=== PATIENT | male | born 1960 | race Caucasian/White ===

== ENCOUNTER 2019-06-28 09:36 | Emergency (ER) | payer OTHER ==
--- NOTE | 2019-06-28 10:12 | ED Physician Chart ---
ED Chief Complaint/HPI - Patient Information Date Seen:: 06/28/19 Time Seen:: 10:05 Chief Complaint:: abdominal pain History of Present Illness:: this is a 59 yr old lauren who is concerned about constipation, abdominal discomfort with episodes of dizziness. he denies hypertension, diabetes and heart disease. he denies nausea, vomiting and diarrhea. Allergies:: Allergies Allergy/AdvReac Type Severity Reaction Status Date / Time No Known Allergies Allergy Verified 06/28/19 09:46 Vitals:: Vital Signs - 8 hr 06/28/19 09:47 Temp 98.6 F HR 89 RR 16 BP 103/64 O2 Sat % 95 Historian:: Patient Review:: Nurse's Note Reviewed ED Review of Systems - Review of Systems General/Constitutional: No fever, No chills, No weight loss, No weakness, No diaphoresis, No edema, No loss of appetite Skin: No skin lesions, No rash, No bruising Head: No headache, Light headed Eyes: No loss of vision, No pain, No diplopia ENT: No earache, No nasal drainage, No sore throat, No tinnitus Neck: No neck pain, No swelling, No thyromegaly, No stiffness, No mass noted Cardio Vascular: No chest pain, No palpitations, No PND, No orthopnea, No edema Pulmonary: No SOB, No cough, No sputum, No wheezing GI: No nausea, No vomiting, No diarrhea, Pain, No melena, No hematochezia, Constipation, No hematemesis G/U: No dysuria, No frequency, No hematuria Musculoskeletal: No bone or joint pain, No back pain, No muscle pain Endocrine: No polyuria, No polydipsia Psychiatric: No prior psych history, No depression, No anxiety, No suicidal ideation Hematopoietic: No bruising, No lymphadenopathy Allergic/Immuno: No urticaria, No angioedema Neurological: No syncope, No focal symptoms, No weakness, No paresthesia, No headache, No seizure, No dizziness, No confusion, No vertigo ED Past Medical History - Past Medical History Obtainable: Yes Past Medical History: No significant medical hx Family History: None Social History: Non Smoker, No Alcohol, No Drug Use, Employed Surgical History: None Psychiatricy History: None Medication: Reviewed Family Medical History - Family Member Mother History Unknown: Yes ED Physical Exam - Physical Examination General/Constitutional: Awake, Well-developed, well-nourished, Alert, No distress, GCS 15, Non-toxic appearing, Ambulatory Head: Atraumatic Eyes: Lids, conjuctiva normal, PERRL, EOMI Skin: Nl inspection, No rash, No skin lesions, No ecchymosis, Well hydrated, No lymphadenopathy ENMT: External ears, nose nl, Nasal exam nl, Lips, teeth, gums nl Neck: Nontender, Full ROM w/o pain, No JVD, No nuchal rigidity, No bruit, No mass, No stridor Respiratory: Nl effort/Exclusion, Clear to Auscultation, No Wheeze/Rhonchi/Rales Cardio Vascular: RRR, No murmur, gallop, rubs, NL S1 S2 GI: No tenderness/rebounding/guarding (mild generalize tenderness), No organomegaly, No hernia, Normal BS's, Nondistended, No mass/bruits, No McBurney tenderness : No CVA tenderness Extremities: No tenderness or effusion, Full ROM, normal strength in all extremities, No edema, Normal digits & nails Neuro/Psych: Alert/oriented, DTR's symmetric, Normal sensory exam, Normal motor strength, Judgement/insight normal, Mood normal, Normal gait, No focal deficits Misc: Normal back, No paraspinal tenderness ED Labs/Radiology/EKG Results - Lab Results Results: Abnormal Lab Results 06/28/19 06/28/19 06/28/19 10:10 10:10 10:10 WBC 7.1 RBC 4.87 Hgb 15.0 Hct 43.3 MCV 88.9 MCH 30.7 H MCHC Differential 34.5 RDW 13.0 Plt Count 278 MPV 7.3 Neutrophils % 63.0 Lymphocytes % 26.5 Monocytes % 8.4 Eosinophils % 1.1 Basophils % 1.0 PT 9.6 INR 0.92 PTT (Actin FS) 25.2 L Sodium Potassium Chloride Carbon Dioxide Anion Gap BUN Creatinine Est GFR ( Amer) Est GFR (Non-Af Amer) BUN/Creatinine Ratio Glucose Calcium Total Bilirubin AST ALT Alkaline Phosphatase Troponin I Total Protein Albumin Globulin Albumin/Globulin Ratio Triglycerides 301 H Cholesterol 197 LDL Cholesterol Direct 124 HDL Cholesterol 29 TSH Urine Source Urine Color Urine Clarity Urine pH Ur Specific [place] Urine Protein Urine Glucose (UA) Urine Ketones Urine Blood Urine Nitrate Urine Bilirubin Urine Urobilinogen Ur Leukocyte Esterase Urine RBC Urine WBC Ur Epithelial Cells Urine Bacteria Urine Mucus 06/28/19 06/28/19 06/28/19 10:10 10:10 10:10 WBC RBC Hgb Hct MCV MCH MCHC Differential RDW Plt Count MPV Neutrophils % Lymphocytes % Monocytes % Eosinophils % Basophils % PT INR PTT (Actin FS) Sodium 135 L Potassium 3.9 Chloride 104 Carbon Dioxide 24.6 Anion Gap 10.3 BUN 19 Creatinine 0.8 Est GFR ( Amer) > 60.0 Est GFR (Non-Af Amer) > 60.0 BUN/Creatinine Ratio 23.8 Glucose 96 Calcium 8.6 Total Bilirubin 0.6 AST 16 ALT 18 Alkaline Phosphatase 75 Troponin I < 0.01 L Total Protein 7.3 Albumin 4.0 L Globulin 3.3 Albumin/Globulin Ratio 1.2 Triglycerides Cholesterol LDL Cholesterol Direct HDL Cholesterol TSH 0.98 Urine Source Urine Color Urine Clarity Urine pH Ur Specific [place] Urine Protein Urine Glucose (UA) Urine Ketones Urine Blood Urine Nitrate Urine Bilirubin Urine Urobilinogen Ur Leukocyte Esterase Urine RBC Urine WBC Ur Epithelial Cells Urine Bacteria Urine Mucus 06/28/19 10:21 WBC RBC Hgb Hct MCV MCH MCHC Differential RDW Plt Count MPV Neutrophils % Lymphocytes % Monocytes % Eosinophils % Basophils % PT INR PTT (Actin FS) Sodium Potassium Chloride Carbon Dioxide Anion Gap BUN Creatinine Est GFR ( Amer) Est GFR (Non-Af Amer) BUN/Creatinine Ratio Glucose Calcium Total Bilirubin AST ALT Alkaline Phosphatase Troponin I Total Protein Albumin Globulin Albumin/Globulin Ratio Triglycerides Cholesterol LDL Cholesterol Direct HDL Cholesterol TSH Urine Source CLEAN C Urine Color YELLOW Urine Clarity HAZY Urine pH 6.5 Ur Specific [place] 1.020 Urine Protein NEGATIVE Urine Glucose (UA) NEGATIVE Urine Ketones NEGATIVE Urine Blood MODERATE H Urine Nitrate NEGATIVE Urine Bilirubin NEGATIVE Urine Urobilinogen 0.2 Ur Leukocyte Esterase NEGATIVE Urine RBC 2-5 H Urine WBC 2-5 Ur Epithelial Cells OCCASIONAL Urine Bacteria FEW Urine Mucus FEW - Radiology Results Results: ct scan of the abdomen = enlarged prostate and diverticulosis coronary atheroscllerosis, small umbilical hernia ct scan of the head = nad chest x-ray = nad - EKG Interpretations EKG Time:: 10:50 Rate & Rhythm: rate =61, sinus Dayhoit: right axis ED Assessment - Assessment General Assessment: gastroenteritis ED Septic Shock - . Is Septic Shock (SBP<90, OR Lactate>4 mmol\L) present?: No - <6hrs of presentation: Vital Signs: Vital Signs - 8 hr 06/28/19 09:47 Temp 98.6 F HR 89 RR 16 BP 103/64 O2 Sat % 95 ED Reassessment (Disposition) - Reassessment Reassessment Condition:: Improved - Diagnosis Diagnosis:: prostate enlargement hematuria umbilical hernia diverticulosis coronary disease - Aftercare/Follow up Instructions Aftercare/Follow-Up Instructions:: Counseled pt regarding lab results/diagnosis & need follow up, Refer to Discharge Instructions, Counseled pt & family regarding lab results/diagnosis & need follow up - Patient Disposition Discharge/Transfer:: Home Condition at Disposition:: Improved
[2019-06-28 10:22] LABS: URINE SOURCE CLEAN C
[2019-06-28 10:28] LABS: % EOSINOPHILS 1.1 % (0.0-5.0); % LYMPHOCYTES 26.5 % (20.0-50.0); % MONOCYTES 8.4 % (2.0-10.0); BASOPHILE ABSOLUTE 0.1 Th/cumm (0-0.2); EOSINOPHILE ABSOLUTE 0.1 Th/cmm (0.1-0.4); HEMATOCRIT 43.3 % (41.0-60); LYMPHOCYTE ABSOLUTE 1.9 Th/cmm (1.5-3.0); MEAN CELL VOLUME 88.9 fl (80-99); MEAN CORPUSCULAR HEMOGLOBIN 30.7 pg (26.0-30.0); MEAN CORPUSCULAR HGB CONC 34.5 pg (28.0-36.0); MONOCYTE ABSOLUTE 0.6 Th/cmm (0.3-1.0); NEUTROPHILE ABSOLUTE 4.4 Th/cmm (1.8-8.0); PLATELET COUNT 278 Th/cmm (150-400); RED BLOOD COUNT 4.87 Mil/cmm (4.30-5.70); WHITE BLOOD COUNT 7.1 Th/cmm (4.8-10.8)
[2019-06-28 10:30] LABS: URINE BILIRUBIN NEGATIVE (NEGATIVE); URINE BLOOD MODERATE (NEGATIVE); URINE GLUCOSE (UA) NEGATIVE (NEGATIVE); URINE KETONE NEGATIVE (NEGATIVE); URINE LEUKOCYTE ESTERASE NEGATIVE (NEGATIVE); URINE MICROSCOPIC INDICATED? YES; URINE NITRATE NEGATIVE (NEGATIVE); URINE PH 6.5 (4.6 - 8.0); URINE PROTEIN NEGATIVE (NEGATIVE); URINE UROBILINOGEN 0.2 E.U./dL (0.2 - 1.0)
[2019-06-28 10:33] LABS: INR 0.92 (0.5-1.4)
[2019-06-28 10:36] LABS: URINE CLARITY HAZY (CLEAR); URINE COLOR YELLOW
[2019-06-28 10:39] LABS: ALB/GLOB RATIO 1.2 (1.0-1.8); ALKALINE PHOSPHATASE 75 U/L (34-104); ANION GAP 10.3 (7.0-16.0); BILIRUBIN,TOTAL 0.6 mg/dL (0.3-1.0); BUN - UREA NITROGEN 19 mg/dL (7-25); CALCIUM SERUM 8.6 mg/dL (8.6-10.3); CARBON DIOXIDE 24.6 mEq/L (21.0-31.0); CHLORIDE 104 mEq/L (98-107); CREATININE - SERUM 0.8 mg/dL (0.7-1.3); GFR AFRICAN-AMERICAN > 60.0 ml/min (>90); GFR NON AFRICAN-AMERICAN > 60.0 ml/min; GLUCOSE 96 mg/dL (70-105); POTASSIUM SERUM 3.9 mEq/L (3.5-5.1); SGOT 16 U/L (13-39); SGPT/ALT 18 U/L (7-52); SODIUM SERUM 135 mEq/L (136-145); TOTAL PROTEIN,SERUM 7.3 gm/dL (6.0-8.3)
[2019-06-28 10:40] LABS: CHOLESTEROL 197 mg/dL (<200); HDL -HIGH DENSITY LIPOPROTEIN 29 mg/dL (23-92); TRIGLYCERIDES 301 mg/dL (<150)
--- NOTE | 2019-06-28 10:46 | Diagnostic Imaging Report ---
Head CT without intravenous contrast Indication: pain Comparison: None Technique: Axial images were obtained from the vertex to the skull base without IV contrast. Coronal reconstructions were made. Total DLP: 627, [id number] FINDINGS: Images of the brain obtained without contrast demonstrate no evidence of acute hemorrhage. The carpenter-white matter differentiation is preserved. The ventricles and basal cisterns are patent. No mass effect or midline shift. There is mild atrophy. No evidence of a skull fracture or focal soft tissue swelling. The visualized paranasal sinuses demonstrate minimal mucosal thickening. IMPRESSION: No evidence of an acute intracranial hemorrhage. Mild atrophy.
--- NOTE | 2019-06-28 10:46 | Diagnostic Imaging Report ---
CHEST X-RAY: AP view INDICATION: pain COMPARISON: None FINDINGS: Slight increased left basal lung markings are seen. Chronic lung changes are seen. There is no focal consolidation or pleural effusions left basal pleural thickening is noted. Heart size is normal. Osseous structures are intact. IMPRESSION: Slight increased left basal lung markings probably chronic. No focal consolidation identified Left basal pleural thickening noted. Additional chronic changes.
[2019-06-28 10:48] LABS: URINE BACTERIA FEW /hpf (NONE SEEN); URINE EPITHELIAL CELLS OCCASIONAL /lpf (FEW)
--- NOTE | 2019-06-28 10:49 | Diagnostic Imaging Report ---
CT abdomen and pelvis without intravenous contrast Indication: Abdominal pain, distention Comparison: None, Technique: Axial images were obtained from the lung bases to the bilateral proximal femurs without IV contrast. Coronal reconstructions were made. total DLP: 775, CTDI13.8 FINDINGS: Hypoventilatory and atelectatic changes of the lungs are noted. Evaluation of the solid organs is limited due to lack of IV contrast. Punctate granulomas seen along the posterior mediastinum. Coronary artery atherosclerosis is partially visualized. There is fatty infiltration of the liver with what appear to be areas of fatty sparing within the left lobe. No focal splenic, pancreatic, or adrenal lesions. No evidence of hydronephrosis or nephrolithiasis. Enlarged prostate gland is seen measuring 6 x 5.5 cm with prostate gland calcifications. Diverticulosis is noted without evidence of diverticulitis. No appendicitis. Small fat-containing umbilical hernia is noted. No free fluid or free air. Degenerative changes spine and pelvis are noted. IMPRESSION: Diverticulosis without evidence of diverticulitis. Enlarged prostate gland. Please correlate with clinical findings. Fatty infiltration of liver with what is likely to be an area of fatty sparing along the left lobe of the liver. Note exam is limited due to lack of IV contrast. Coronary artery atherosclerosis noted. Small fat-containing umbilical hernia.
== END 2019-06-28 12:10 | disposition home or self-care (01) ==
LOC: ER 09:36
DX: K42.9 Umbilical hernia without obstruction or gangrene (principal); K57.90 Diverticulosis of intestine, part unspecified, without perforation or abscess without bleeding; I25.10 Atherosclerotic heart disease of native coronary artery without angina pectoris; N40.0 Benign prostatic hyperplasia without lower urinary tract symptoms; K52.9 Noninfective gastroenteritis and colitis, unspecified; R31.9 Hematuria, unspecified
CPT/HCPCS: 99284; 96372 ×2; 93005; 71045; 70450; 74176; 84484; 36415; 84443; 85025; 85610; 85730; 87086; 81001; 80053; 80061; J0696; J2930